=== PATIENT | female | born 1955 | race Caucasian/White ===

== ENCOUNTER 2016-10-19 10:42 | Emergency (ER) | payer OTHER ==
[~2016-10-19] VITALS: Ht 162.6 cm; Wt 82.0 kg
[~2016-10-19 10:42] MED LIST: COQ1150C2 PO; DIAZ5 PO; ESTR0.02 TD; FIORTAB4 PO; FOSI20 PO; PERC7.5T13 PO; ROSU5 PO; VALA500 PO
[2016-10-19 11:00] VITALS: BP 189/98; PULSE 96; RESP 16; TEMP 98.2; O2SAT 97
--- NOTE | 2016-10-19 11:09 | PD ---
HPI Chief Complaint: Allergic/Adverse Reaction Time Seen by Provider: 11:08 Travel History International Travel<30 days: No Contact w/Intl Traveler<30days: No Traveled to known affect area: No History of Present Illness HPI Patient 59-year-old female presents emergency department with swelling over her face and eyelids. Patient states she got out early to go work in her yard and a wasp stung her on the face as well as twice in the left upper extremity once on the right. She states this occurred approximately an hour prior to arrival and then she noticed some swelling and difficulty opening her eyes. She denies any shortness of breath, abdominal pain headache wheezing choking sensation or difficulty swallowing. States symptoms been gradually worsening. PFSH Past Medical History Anxiety: Yes Cardiovascular Problems: Yes (HTN) High Cholesterol: Yes Hypertension: Yes Migraines: Yes Thyroid Disease: Yes Tetanus Vaccination: > 5 Years Influenza Vaccination: No ?: Not Menopausal: Yes Tubal Ligation: Yes Past Surgical History Appendectomy: Yes Section: Yes Cholecystectomy: Yes Genitourinary Surgery: Yes (Bladder) Gynecologic Surgery: Yes (Adhesions removed) Hysterectomy: Yes Tonsillectomy: Yes Social History Alcohol Use: No Tobacco Use: No Substance Use: No Allergies-Medications (Allergen,Severity, Reaction): Uncoded Allergies: Thimerosal (Allergy, Severe, "Eyes blistered", 10/19/16) Reported Meds & Prescriptions Reported Meds & Active Scripts Active Epipen 2-Clark Inj (Epinephrine) 0.3 Mg/0.3 Ml Pfpen 0.3 Mg IM ONCE PRN Prednisone 20 Mg Tab 60 Mg PO DAILY 5 Days Reported Simvastatin 5 Mg Tab 5 Mg PO DAILY Hydrochlorothiazide 12.5 Mg Cap 12.5 Mg PO DAILY Valtrex (Valacyclovir HCl) 1 Gm Tab 1,000 Mg PO DAILY Estradiol 0.5 Mg Tab 0.5 Mg PO DAILY Valium (Diazepam) 5 Mg Tab 5 Mg PO BID Amlodipine (Amlodipine Besylate) 2.5 Mg Tab 2.5 Mg PO HS Levothyroxine (Levothyroxine Sodium) 50 Mcg Tab 50 Mcg PO DAILY Fosinopril (Fosinopril Sodium) 20 Mg Tab 20 Mg PO BID Review of Systems Except as stated in HPI: all other systems reviewed are Neg Physical Exam Narrative GENERAL: Well-developed well-nourished no apparent distress SKIN: Patient has some redness and a malar distribution, there is some soft tissue edema periorbital and over the bridge of her nose, no lip swelling HEAD: Atraumatic. Normocephalic. EYES: Pupils equal and round. No scleral icterus. No injection or drainage. ENT: No nasal bleeding or discharge. Mucous membranes pink and moist. Oropharynx is clear without any swelling. Airway is widely patent. NECK: Trachea midline. No JVD. CARDIOVASCULAR: Regular rate and rhythm. No murmur appreciated. RESPIRATORY: No accessory muscle use. Clear to auscultation. Breath sounds equal bilaterally. GASTROINTESTINAL: Abdomen soft, non-tender, nondistended. Hepatic and splenic margins not palpable. MUSCULOSKELETAL: No obvious deformities. No clubbing. No cyanosis. No edema. NEUROLOGICAL: Awake and alert. No obvious cranial nerve deficits. Motor grossly within normal limits. Normal speech. PSYCHIATRIC: Appropriate mood and affect; insight and judgment normal. Data Data Last Documented VS Vital Signs Date Time Temp Pulse Resp B/P Pulse Ox O2 Delivery O2 Flow Rate FiO2 10/19/16 14:25 83 97 10/19/16 12:20 14 153/89 Room Air 10/19/16 11:00 98.2 Orders Dexamethasone Inj (Decadron Inj) (10/19/16 11:15) Diphenhydramine Inj (Benadryl Inj) (10/19/16 11:15) MDM Medical Decision Making Medical Screen Exam Complete: Yes Emergency Medical Condition: Yes Differential Diagnosis Allergic reaction, urticaria, anaphylaxis is excluded clinically, angioedema. Narrative Course Patient was roomed in the emergency department, she did take 50 mg of Benadryl by mouth prior to arrival, she was given Decadron in the emergency department, she was given Benadryl IV. Over the next several hours she improved significantly. She continues to protect her airway. She is stable for discharge at this time. Discussed with her symptomatic management, the use of EpiPen and when it should be used and when to call 911. Discussed return to ED criteria. Diagnosis Primary Impression: Allergic reaction to bee sting Med/Other Pt SpecificInfo: Prescription(s) given Scripts Epinephrine Inj (Epipen 2-Clark Inj)0.3 Mg/0.3 Ml Pfpen0.3 Mg IM ONCE PRN ( ALLERGIC REACTION) #1 PACK Ref 0 Prov:Constantino Rincon MD 10/19/16 Prednisone 20 Mg Tab60 Mg PO DAILY 5 Days Ref 0 Prov:Constantino Rincon MD 10/19/16 Disposition: 01 DISCHARGE HOME Condition: Stable Constantino Rincon MD Oct 19, 2016 11:09
[2016-10-19] MEDS ORDERED: DIAZ5 PO (11:10)
[2016-10-19] MEDS ORDERED: LEVO50TA4 PO (11:10)
[2016-10-19] MEDS ORDERED: AMLO2.5T PO (11:10)
[2016-10-19] MEDS ORDERED: FOSI20TA PO (11:10)
[2016-10-19] MEDS ORDERED: HYDR12.57 PO (11:11)
[2016-10-19] MEDS ORDERED: ESTR0.5T PO (11:11)
[2016-10-19] MEDS ORDERED: VALT1TAB PO (11:11)
[2016-10-19] MEDS ORDERED: SIMV5TAB3 PO (11:11)
[2016-10-19] MEDS ORDERED: diphenhydrAMINE HCL 50 MG/ML VIAL IV PUSH ONE (11:15)
[2016-10-19] MEDS ORDERED: DEXAMETHASONE SOD PHOS 4 MG/ML VIAL IV PUSH ONE (11:15)
[2016-10-19 12:20] VITALS: BP 153/89; PULSE 87; RESP 14; O2SAT 98
[2016-10-19] MEDS ORDERED: EPIP0.3I IM (14:10)
[2016-10-19] MEDS ORDERED: PRED20 PO (14:10)
== END 2016-10-19 14:30 | disposition home or self-care (01) ==
LOC: PHED 10:42
DX: T63.441A Toxic effect of venom of bees, accidental (unintentional), initial encounter (principal); I10 Essential (primary) hypertension; E78.00 Pure hypercholesterolemia, unspecified; E07.9 Disorder of thyroid, unspecified
CPT/HCPCS: 96374; 96375; 99284; J1100; J1200

== ENCOUNTER 2016-12-18 16:20 | Emergency (ER) | payer OTHER ==
[~2016-12-18] VITALS: Ht 162.6 cm; Wt 79.2 kg
[~2016-12-18 16:20] MED LIST changes: +AMLO2.5T PO; -COQ1150C2 PO; +EPIP0.3I IM; -ESTR0.02 TD; +ESTR0.5T PO; -FIORTAB4 PO; -FOSI20 PO; +FOSI20TA PO; +HYDR12.57 PO; +LEVO50TA4 PO; -PERC7.5T13 PO; +PRED20 PO; -ROSU5 PO; +SIMV5TAB3 PO; -VALA500 PO; +VALT1TAB PO
[2016-12-18 16:29] VITALS: BP 152/83; PULSE 85; RESP 16; TEMP 98.1; O2SAT 99
[2016-12-18] MEDS ORDERED: ATOR40TA16 PO (17:22)
--- NOTE | 2016-12-18 17:31 | PD ---
HPI Chief Complaint: Edema Time Seen by Provider: 17:24 Travel History International Travel<30 days: No Contact w/Intl Traveler<30days: No Traveled to known affect area: No History of Present Illness HPI pcp is dr bergman. patient drove up to [place] ([address]) and developed large edema to ble, sent pictures to pcp who advised to be seen in hospital to ensure it was not a dvt, patient stated she would drive back home, her pcp did not recc this but she did anyway (except this time her son drove her down and she was passenger who kept her legs elevated)...this occurred on wednesday...today is wednesday and patient presents for dvt evaluation....presently patient has minimal swelling stating that keeping legs elev and using medical stockings helped reduce swelling greatly. PFSH Past Medical History Anxiety: Yes Cardiovascular Problems: Yes (HTN) High Cholesterol: Yes Diminished Hearing: No Hypertension: Yes Migraines: Yes Thyroid Disease: Yes Tetanus Vaccination: Unknown Influenza Vaccination: No ?: Not Menopausal: Yes Tubal Ligation: Yes Past Surgical History Appendectomy: Yes Section: Yes Cholecystectomy: Yes Genitourinary Surgery: Yes (Bladder) Gynecologic Surgery: Yes (Adhesions removed) Hysterectomy: Yes Tonsillectomy: Yes Social History Alcohol Use: No Tobacco Use: No Substance Use: No Allergies-Medications (Allergen,Severity, Reaction): Uncoded Allergies: Thimerosal (Allergy, Severe, "Eyes blistered", 10/19/16) Reported Meds & Prescriptions Reported Meds & Active Scripts Active Epipen 2-Clark Inj (Epinephrine) 0.3 Mg/0.3 Ml Pfpen 0.3 Mg IM ONCE PRN Reported Atorvastatin (Atorvastatin Calcium) 40 Mg Tab 40 Mg PO HS Hydrochlorothiazide 12.5 Mg Cap 12.5 Mg PO DAILY Valtrex (Valacyclovir HCl) 1 Gm Tab 1,000 Mg PO DAILY Estradiol 0.5 Mg Tab 0.5 Mg PO DAILY Valium (Diazepam) 5 Mg Tab 5 Mg PO BID Amlodipine (Amlodipine Besylate) 2.5 Mg Tab 2.5 Mg PO HS Levothyroxine (Levothyroxine Sodium) 50 Mcg Tab 50 Mcg PO DAILY Fosinopril (Fosinopril Sodium) 20 Mg Tab 20 Mg PO BID Review of Systems Except as stated in HPI: all other systems reviewed are Neg Cardiovascular: Positive: Edema (to BLE) Physical Exam Narrative GENERAL: SKIN: Warm and dry. no streaking or cellulitic changes HEAD: Atraumatic. Normocephalic. EYES: Pupils equal and round. No scleral icterus. No injection or drainage. ENT: No nasal bleeding or discharge. Mucous membranes pink and moist. NECK: Trachea midline. No JVD. CARDIOVASCULAR: Regular rate and rhythm. RESPIRATORY: No accessory muscle use. Clear to auscultation. Breath sounds equal bilaterally. GASTROINTESTINAL: Abdomen soft, non-tender, nondistended. MUSCULOSKELETAL: Extremities without clubbing, cyanosis, or 1+ ble edema. No obvious deformities. NEUROLOGICAL: Awake and alert. No obvious cranial nerve deficits. Motor grossly within normal limits. Five out of 5 muscle strength in the arms and legs. Normal speech. PSYCHIATRIC: Appropriate mood and affect; insight and judgment normal. Data Data Last Documented VS Vital Signs Date Time Temp Pulse Resp B/P (MAP) Pulse Ox O2 Delivery O2 Flow Rate FiO2 12/18/16 17:14 16 99 12/18/16 16:29 98.1 85 152/83 (106) Room Air Orders Orders Us Leg Venous Doppler Bilat (12/18/16 ) Basic Metabolic Panel (Bmp) (12/18/16 17:24) B-Type Natriuretic Peptide (12/18/16 17:24) Thyroid Stimulating Hormone (12/18/16 17:24) Potassium Chloride (Kcl) (12/18/16 19:15) Labs Laboratory Tests Test 12/18/16 18:00 Blood Urea Nitrogen 10 MG/DL Creatinine 0.91 MG/DL Random Glucose 108 MG/DL Calcium Level 8.5 MG/DL Sodium Level 138 MEQ/L Potassium Level 3.0 MEQ/L Chloride Level 102 MEQ/L Carbon Dioxide Level 26.4 MEQ/L Anion Gap 10 MEQ/L Estimat Glomerular Filtration Rate 63 ML/MIN Thyroid Stimulating Hormone 3rd Gen 2.240 uIU/ML [facility] Medical Decision Making Medical Screen Exam Complete: Yes Emergency Medical Condition: Yes Medical Record Reviewed: Yes Differential Diagnosis peripheral edema v dvt v chf v renal failure v liver failure Narrative Course creatinine and lft's wnl, ultrs neg for dvt on both legs, also bnp was not elevated to suggest chf. at this point patient appears to have peripheral edema for which pt can continue keeping legs elevated...potassium low will orally replace Diagnosis Primary Impression: Mild peripheral edema Additional Impression: mild hypokalemia Disposition: 01 DISCHARGE HOME Condition: Stable Flo Cervantes MD Dec 18, 2016 17:31
--- NOTE | 2016-12-18 18:01 | RADRPT ---
EXAM DATE/TIME: 12/18/2016 17:27 [facility] COMPARISON: No previous studies available for comparison. INDICATIONS : Bilateral leg swelling. MEDICAL HISTORY : Hypercholesterolemia. Hypertension. Thyroid disease. Glasses. SURGICAL HISTORY : Tonsillectomy.Appendectomy. Cholecystectomy.Tubal ligation. Hysterectomy. section. Bladder s urgery. ENCOUNTER: Initial ACUITY: 1 day PAIN SCORE: 1/10 LOCATION: Bilateral legs. TECHNIQUE: Venous ultrasound of the left and right leg was performed from the inguinal ligament to the proximal calf. Real-time, color Doppler and spectral tracing, compression and augmentation techniques were us ed. FINDINGS: RIGHT LEG: There is normal compressibility of the deep venous system from the inguinal region to the proximal ca lf. No echogenic clot is seen in the lumen of the common femoral, femoral, popliteal, and posterior tibial veins. There is a normal response of the venous system to proximal and distal augmentation an d respiration. LEFT LEG: There is normal compressibility of the deep venous system from the inguinal region to the proximal ca lf. No echogenic clot is seen in the lumen of the common femoral, femoral, popliteal, and posterior tibial veins. There is a normal response of the venous system to proximal and distal augmentation an d respiration. CONCLUSION: No DVT of either lower extremity. Corey Yeboah MD on December 18, 2016 at 18:00 Board Certified Radiologist. This report was verified electronically.
[2016-12-18 18:23] LABS: BICARBONATE 26.4 MEQ/L (21.0-32.0)
[2016-12-18] MEDS ORDERED: POTASSIUM CHLORIDE 10 MEQ CONTROLLED RELEASE TAB PO ONE (19:15)
[2016-12-18 19:43] VITALS: BP 137/75
== END 2016-12-18 19:53 | disposition home or self-care (01) ==
LOC: PHED 16:20
DX: R60.0 Localized edema (principal); E87.6 Hypokalemia; I10 Essential (primary) hypertension; E78.00 Pure hypercholesterolemia, unspecified; E07.9 Disorder of thyroid, unspecified
CPT/HCPCS: 80048; 83880; 84443; 93970; 99285

== ENCOUNTER 2017-05-21 00:56 | Emergency (ER) | payer OTHER ==
[~2017-05-21] VITALS: Ht 162.6 cm; Wt 78.3 kg
[~2017-05-21 00:56] MED LIST changes: +ATOR40TA16 PO; -PRED20 PO; -SIMV5TAB3 PO
[2017-05-21 00:57] VITALS: BP 163/79; PULSE 87; RESP 18; TEMP 97.8; O2SAT 96
--- NOTE | 2017-05-21 02:07 | PD ---
HPI Chief Complaint: OD/ Ingestion Time Seen by Provider: 01:34 Travel History International Travel<30 days: No Contact w/Intl Traveler<30days: No Traveled to known affect area: No History of Present Illness HPI 62-year-old female presents to the emergency department by private transportation for accidental overdose of Zyrtec. According the patient prior to going to bed at 11 PM she took off her evening medications including a one- time 10 mg dose of Zyrtec. Patient states she reportedly awakened around 12:30 with severe diarrhea and decided take an antidiarrheal pill and took 3 but identified after taking the medication that she had accidentally ingested 3 additional 0 tach and not the antidiarrheal medication. Patient became concerned because she has a history of high blood pressure and within approximately one hour to one and a half prior. She had taken 40 mg of Zyrtec. Patient states she tried to contact poison control but was directed to come to the emergency room by the auto response. Patient has no headache no visual disturbance no chest pain no shortness of breath no nausea no vomiting no ataxia no blurred vision double vision loss of vision palpitations balance disturbance of for lower extremity numbness tingling or weakness. Patient has not experienced any urinary retention. Patient states patient did not induce any vomiting. Patient states that she routinely takes medication for hypertension hypothyroidism pelvic spasm migraines and irritable/inflammatory bowel syndromes. [facility] Past Medical History Narrative Medical Anxiety dyslipidemia hypertension hypothyroidism migraines inflammatory bowel disease pelvic spasm syndrome appendectomy cholecystectomy hysterectomy tubal ligation; no tobacco use; nursing notes reviewed Anxiety: Yes Cardiovascular Problems: Yes (HTN) High Cholesterol: Yes Diminished Hearing: No Hypertension: Yes Migraines: Yes Thyroid Disease: Yes Tetanus Vaccination: > 5 Years Influenza Vaccination: No ?: Not Menopausal: Yes Tubal Ligation: Yes Past Surgical History Appendectomy: Yes Section: Yes Cholecystectomy: Yes Genitourinary Surgery: Yes (Bladder) Gynecologic Surgery: Yes (Adhesions removed) Hysterectomy: Yes Tonsillectomy: Yes Social History Alcohol Use: No Tobacco Use: No Substance Use: No Allergies-Medications (Allergen,Severity, Reaction): Uncoded Allergies: Thimerosal (Allergy, Severe, "Eyes blistered", 10/19/16) Reported Meds & Prescriptions Reported Meds & Active Scripts Active Epipen 2-Clark Inj (Epinephrine) 0.3 Mg/0.3 Ml Pfpen 0.3 Mg IM ONCE PRN Reported Atorvastatin (Atorvastatin Calcium) 40 Mg Tab 40 Mg PO HS Hydrochlorothiazide 12.5 Mg Cap 12.5 Mg PO DAILY Valtrex (Valacyclovir HCl) 1 Gm Tab 1,000 Mg PO DAILY Estradiol 0.5 Mg Tab 0.5 Mg PO DAILY Valium (Diazepam) 5 Mg Tab 5 Mg PO BID Amlodipine (Amlodipine Besylate) 2.5 Mg Tab 2.5 Mg PO HS Levothyroxine (Levothyroxine Sodium) 50 Mcg Tab 50 Mcg PO DAILY Fosinopril (Fosinopril Sodium) 20 Mg Tab 20 Mg PO BID Review of Systems Except as stated in HPI: all other systems reviewed are Neg General / Constitutional: No: Fever, Chills HENT: No: Congestion Cardiovascular: No: Chest Pain or Discomfort, Palpitations, Diaphoresis, Syncope Respiratory: No: Cough, Shortness of Breath, Wheezing Gastrointestinal: No: Nausea, Vomiting, Abdominal Pain Genitourinary: No: Hesitancy, Dribbling, Flank Pain Musculoskeletal: No: Myalgias, Arthralgias Skin: No Rash Neurologic: No: Weakness, Dizziness, Syncope, Focal Abnormalities, Coordination Problem Psychiatric: No: Anxiety Endocrine: No: Heat Intolerance Hematologic/Lymphatic: No: Easy Bruising Physical Exam Narrative GENERAL: Well-developed well-nourished female in no acute distress no respiratory distress; GCS 15. SKIN: Warm and dry. HEAD: Normocephalic. EYES: No scleral icterus. No injection or drainage. NECK: Supple, trachea midline. No JVD or lymphadenopathy. CARDIOVASCULAR: Regular rate and rhythm without murmurs, gallops, or rubs. RESPIRATORY: Breath sounds equal bilaterally. No accessory muscle use. GASTROINTESTINAL: Abdomen soft, non-tender, nondistended. MUSCULOSKELETAL: No cyanosis, or edema. BACK: Nontender without obvious deformity. No CVA tenderness. Data Data Last Documented VS Vital Signs Date Time Temp Pulse Resp B/P (MAP) Pulse Ox O2 Delivery O2 Flow Rate FiO2 05/21/17 02:08 85 18 138/85 (102) 97 05/21/17 01:25 Room Air 05/21/17 00:57 97.8 Orders Orders Electrocardiogram (05/21/17 ) MDM Medical Decision Making Medical Screen Exam Complete: Yes Emergency Medical Condition: Yes Medical Record Reviewed: Yes Interpretation(s) EKG: Normal sinus rhythm rate [address] elevation injury pattern or ectopy noted Differential Diagnosis Accidental antihistamine overdose, uncontrolled hypertension, diarrheal illness Narrative Course Patient with accidental ingestion of a total of 40 mg of Zyrtec over a one-hour period: Patient has history of hypertension; patient is asymptomatic: Patient took Valium at bedtime which is routine for her; blood pressure in triage 163/ 79. Patient has taken her antihypertensive medications. Poison control notified. EKG ordered and repeat blood pressures performed. Patient is otherwise asymptomatic and stable for outpatient management. EKG sinus rhythm no acute injury pattern or ectopy noted; repeat blood pressure 134/73 Patient tolerating oral hydration well. EKG shows no acute abnormality patient to monitor for 2 hours without ectopy and blood pressure has remained normal range except for initial triage blood pressure was mildly elevated. It is now 3 AM patient is comfortable no increased drowsiness no agitation no nervousness no restlessness no chest pain no shortness of breath no sweats tolerating oral hydration well no altered mentation no pain no urinary retention no upper or lower extremity numbness tingling or weakness or ataxia of gait. Patient is been up out of bed to bathroom. Patient is taking oral hydration well. Patient is stable for outpatient management and follow-up with her primary care provider and encouraged to not use Zyrtec or any additional antihistamines for the next 24-48 hours. Diagnosis Primary Impression: Accidental overdose Qualified Codes: T50.901A - Poisoning by unspecified drugs, medicaments and biological substances, accidental (unintentional), initial encounter Referrals: Primary Care Physician call for appointment Patient Instructions: General Instructions Additional Instructions: Do not take any Zyrtec/antihistamine 24-48 hours Follow-up with your primary care provider Continue chronic medications as otherwise chronically prescribed Increase fluid hydration Return to the emergency department for a concerns or change in condition Disposition: 01 DISCHARGE HOME Condition: Stable Alpa Selby MD May 21, 2017 02:07
[2017-05-21 02:08] VITALS: BP 138/85; PULSE 85; RESP 18; O2SAT 97
[2017-05-21 03:08] VITALS: BP 135/74; TEMP 98.2
--- NOTE | 2017-05-21 08:33 | EKG ---
Date Performed: 05/21/2017 Time Performed: 01:42:15 PTAGE: 62 years EKG: Sinus rhythm LOW QRS VOLTAGE IN PRECORDIAL LEADS BORDERLINE ECG PREVIOUS TRACING : 10/20/2010 07.48 No change from previous tracing noted. DOCTOR: Arnulfo Thomas Interpretating Date/Time 05/21/2017 08:33:37
== END 2017-05-21 03:11 | disposition home or self-care (01) ==
LOC: PHED 00:56
DX: T45.0X1A Poisoning by antiallergic and antiemetic drugs, accidental (unintentional), initial encounter (principal); R94.31 Abnormal electrocardiogram [ECG] [EKG]; I10 Essential (primary) hypertension; E78.00 Pure hypercholesterolemia, unspecified; E03.9 Hypothyroidism, unspecified; F41.9 Anxiety disorder, unspecified; Y92.009 Unspecified place in unspecified non-institutional (private) residence as the place of occurrence of the external cause; Z90.49 Acquired absence of other specified parts of digestive tract; Z90.710 Acquired absence of both cervix and uterus; Z88.8 Allergy status to other drugs, medicaments and biological substances; Z79.899 Other long term (current) drug therapy
CPT/HCPCS: 93005; 99283

== ENCOUNTER 2018-06-11 04:02 | Inpatient (IN) ==
[2018-06-11] MEDS ORDERED: Pantoprazole Inj 40 MG Vial IV.PUSH ONE (04:14)
[2018-06-11] MEDS ORDERED: Sod Chloride 0.9% Inj 1,000 ML IV.SIG ONE (04:14)
[2018-06-11] MEDS ORDERED: Azithromycin Inj 500 MG in Sodium Chlor 0.9% Inj 250 ML IV.SIG ONE (04:23)
--- NOTE | 2018-06-11 04:23 | ED ---
HPI General Chief Complaint: Nausea/Vomiting/Diarrhea Stated Complaint: Vomiting Blood Time Seen by Provider: 06/11/18 04:14 Source: patient Mode of arrival: ambulatory Limitations: no limitations History of Present Illness HPI Narrative: 63-year-old female presents to the emergency department by private transportation for complaint of fever cough congestion vomiting and then episode of hematemesis. Patient states that she has recently been exposed to respiratory illness for multiple family members while attending a in [place]. Patient just returned home yesterday. Patient states family members have also had nausea patient states she did not have the flu vaccine. Patient reports that at home her temperature was 102.7 F. Patient's had cough congestion chest pain with deep respiratory effort and coughing. Patient is not reporting abdominal pain or rectal pain or hematochezia or melena or urinary symptoms such as dysuria frequency urgency dysuria or hematuria or flank pain. Patient has history of hypertension dyslipidemia and diabetes also was treated for migraines as needed has had previous shingles. Patient did not have the flu vaccine as she is reportedly allergic to the preservative. MD complaint: Reports fever, malaise and weakness Onset (ago): day(s) Maximum Temperature: 102.7 F Temperature Source: oral Context: Reports sick contacts, other(s) with similar symptoms and recent travel ; Denies recent procedure, recent antibiotic use, on chemotherapy and on immunosuppressant(s) Associated symptoms: Reports chills, myalgias, nasal congestion, sore throat, cough, chest pain, shortness of breath, nausea and vomiting; Denies rigors, headache, rhinorrhea, stiff neck, abdominal pain, diarrhea, dysuria, rash, confusion, night sweats and weight loss Relieving factors: nothing and other (aleve) Exacerbating factors: nothing Treatments prior to arrival fever: Reports other (aleve) Related Data Home Medications Medication Instructions Recorded Confirmed [id number]-[id number]-doknlxrk 1 cap PO Q6H 12/09/17 06/11/18 diazepam 5 mg PO DAILY 12/09/17 06/11/18 esomeprazole magnesium 40 mg PO DAILY 12/09/17 06/11/18 estradiol 2 mg PO EVERY OTHER DAY 12/09/17 06/11/18 fosinopril 20 mg PO BID 12/09/17 06/11/18 hydrochlorothiazide 25 mg PO DAILY 12/09/17 06/11/18 levothyroxine 50 mcg PO DAILY 12/09/17 06/11/18 nebivolol [Bystolic] 10 mg PO DAILY 12/09/17 06/11/18 promethazine 25 mg PO Q6H PRN 12/09/17 06/11/18 magnesium oxide [MagOx] 400 mg PO DAILY 06/11/18 06/11/18 potassium chloride 10 meq PO BID 06/11/18 06/11/18 rosuvastatin 40 mg PO DAILY 06/11/18 06/11/18 valacyclovir 1,000 mg PO TID 06/11/18 06/11/18 Allergies Allergy/AdvReac Type Severity Reaction Status Date / Time Thimerosal Allergy Severe "Eyes Uncoded 06/11/18 04:19 blistered" Review of Systems ROS: all other systems reviewed are negative PMFSH History History Provided By: Patient Medical History Medical History Diabetes (Acute) Hyperlipidemia (Acute) Hypertension (Acute) Hypothyroid (Acute) Migraine (Acute) Shingles (Acute) Surgical History Surgical History H/O total hysterectomy (Acute) Social History Social History Substance History: No History of Abuse Second Hand Smoke Exposure: No Smoking Status: Never smoker How Often Do You Have a Drink Containing Alcohol: Never Recent Travel in [facility] within the Last 8 Weeks: No Recent Out of Country Travel within the Last 8 Weeks: No Exam Narrative Exam Narrative: GENERAL: Well-nourished, well-developed patient. No acute distress no respiratory distress GCS 15 SKIN: Focused skin assessment warm/dry. HEAD: Normocephalic. EYES: No scleral icterus. No injection or drainage. ENT: Mucous membranes moist airway is patent no edema erythema or exudative change and scant blood down the posterior pharynx. NECK: Supple, trachea midline. No JVD or lymphadenopathy. No meningismus no nuchal rigidity. CARDIOVASCULAR: Regular rate and rhythm without murmurs, gallops, or rubs. RESPIRATORY: Breath sounds equal bilaterally few right base crackles. No accessory muscle use. GASTROINTESTINAL: Abdomen soft, non-tender, nondistended. No guarding no rebound. MUSCULOSKELETAL: No cyanosis, or edema. BACK: Nontender without obvious deformity. No CVA tenderness. Course Initial Documented Vital Signs Temperature 100.0 F H 06/11/18 04:14 Pulse Rate 84 06/11/18 04:14 Respiratory Rate 18 06/11/18 04:14 Blood Pressure 126/72 06/11/18 04:14 Pulse Oximetry 93 L 06/11/18 04:14 Last Documented Vital Signs Temperature 102.2 F H 06/11/18 06:03 Pulse Rate 83 06/11/18 06:03 Respiratory Rate 18 06/11/18 06:03 Blood Pressure 123/68 06/11/18 06:03 Pulse Oximetry 95 06/11/18 06:03 Medical Decision Making MDM Narrative Medical decision making narrative: Patient has received presumptive IV antibiotic for community-acquired pneumonia with Rocephin and [age]cegav[age]zkc82- year-old female with upper respiratory and infection possible influenza and concern for pneumonia presents with reported episode of vomiting and then hematemesis. IV access obtained specimens collected and sent for resulting patient did take an Aleve prior to arrival to the emergency department and report of fever of 102.7 F from home has defervesced to 100 F. Specimens collected and sent for resulting patient given bolus of normal and presumptive IV antibiotic for community-acquired pneumonia Rectal exam is Hemoccult negative; Gastroccult is positive Chest x-ray shows no lobar infiltrate Influenza A/B antigen is negative CBC with automated differential total white cell count is 8700 with left shift 87% neutrophils mild thrombocytopenia platelet count 122,000 Coagulation studies are normal range CBC is automated differential serum sodium potassium are in normal range bicarb is normal at 28 with an anion gap of 6 normal renal function with a BUN and creatinine of 11/0.99 respectively mild hyperglycemia 136 nonspecific as nonspecific postprandial lactic acid is borderline at 2.0 LFTs are remarkable for mild elevation of AST of 106 and ALT of 65 EKG shows no acute injury pattern change and troponin I is less than 0.02 Patient's case discussed with [facility] service will admit as obscure Sirs, influenza -like illness bronchitis possible early pneumonia not identified yet on CHEST X- RAY acute gastritis with report of hematemesis not identified in the emergency department however emesis is Gastroccult positive. Patient has received presumptive IV antibiotic for community-acquired pneumonia with Rocephin and azithromycin. Medical Screen Exam Complete: Yes Emergency Medical Condition: Yes Lab Data Result diagrams: 06/11/18 04:13 06/11/18 04:13 Lab Results 06/11/18 06/11/18 06/11/18 Range/Units 04:13 04:13 04:13 CBC w Diff Auto diff final WBC 8.7 (4.0-11.0) th/mm3 RBC 3.97 L (4.00-5.30) mil/mm3 Hgb 13.0 (11.6-15.3) gm/dL Hct 37.3 (35.0-46.0) % MCV 93.9 (80.0-100.0) fL MCH 32.6 (27.0-34.0) pg MCHC 34.8 (32.0-36.0) % RDW 12.4 (11.6-17.2) % Plt Count 122 L (150-450) th/mm3 MPV 9.8 (7.0-11.0) fL Neut % (Auto) 84.9 H (16.0-70.0) % Lymph % (Auto) 10.5 (9.0-44.0) % [place] % (Auto) 3.3 (0.0-8.0) % Eos % (Auto) 0.9 (0.0-4.0) % Baso % (Auto) 0.4 (0.0-2.0) % Neut # (Auto) 7.4 (1.8-7.7) th/mm3 Lymph # (Auto) 0.9 L (1.0-4.8) th/mm3 [place] # (Auto) 0.3 (0.0-0.9) th/mm3 Eos # (Auto) 0.1 (0.0-0.4) th/mm3 Baso # (Auto) 0.0 (0.0-0.2) th/mm3 WBC Differential . Differential Comment . PT 10.0 (9.8-11.6) sec INR 1.0 Ratio Sodium (136-145) meq/L Potassium (3.5-5.1) meq/L Chloride (98-107) meq/L Carbon Dioxide (21.0-32.0) meq/L Anion Gap (5-15) meq/L BUN (7-18) mg/dL Creatinine (0.50-1.00) mg/dL Estimated GFR (>89) mL/min Random Glucose (74-106) mg/dL Lactic Acid (0.4-2.0) mmol/L Calcium (8.5-10.1) mg/dL Total Bilirubin (0.2-1.0) mg/dL AST (15-37) U/L ALT (10-53) U/L Alkaline Phosphatase (45-117) U/L Troponin I Less than 0.02 L (0.02-0.05) ng/mL Total Protein (6.4-8.2) g/dL Albumin (3.4-5.0) g/dL Lipase 101 (73-393) U/L 06/11/18 06/11/18 Range/Units 04:13 04:13 CBC w Diff WBC (4.0-11.0) th/mm3 RBC (4.00-5.30) mil/mm3 Hgb (11.6-15.3) gm/dL Hct (35.0-46.0) % MCV (80.0-100.0) fL MCH (27.0-34.0) pg MCHC (32.0-36.0) % RDW (11.6-17.2) % Plt Count (150-450) th/mm3 MPV (7.0-11.0) fL Neut % (Auto) (16.0-70.0) % Lymph % (Auto) (9.0-44.0) % [place] % (Auto) (0.0-8.0) % Eos % (Auto) (0.0-4.0) % Baso % (Auto) (0.0-2.0) % Neut # (Auto) (1.8-7.7) th/mm3 Lymph # (Auto) (1.0-4.8) th/mm3 [place] # (Auto) (0.0-0.9) th/mm3 Eos # (Auto) (0.0-0.4) th/mm3 Baso # (Auto) (0.0-0.2) th/mm3 WBC Differential Differential Comment PT (9.8-11.6) sec INR Ratio Sodium 136 (136-145) meq/L Potassium 3.6 (3.5-5.1) meq/L Chloride 102 (98-107) meq/L Carbon Dioxide 28.1 (21.0-32.0) meq/L Anion Gap 6 (5-15) meq/L BUN 11 (7-18) mg/dL Creatinine 0.99 (0.50-1.00) mg/dL Estimated GFR 56 L (>89) mL/min Random Glucose 136 H (74-106) mg/dL Lactic Acid 2.0 (0.4-2.0) mmol/L Calcium 8.5 (8.5-10.1) mg/dL Total Bilirubin 0.5 (0.2-1.0) mg/dL AST 106 H (15-37) U/L ALT 65 H (10-53) U/L Alkaline Phosphatase 91 (45-117) U/L Troponin I (0.02-0.05) ng/mL Total Protein 7.7 (6.4-8.2) g/dL Albumin 4.2 (3.4-5.0) g/dL Lipase (73-393) U/L Imaging Data Radiologist's impression: Chest X-Ray 06/11/18 04:15 CONCLUSION: No acute disease ECG Data EKG Prior to Arrival: No Attestation: I personally reviewed and interpreted this ECG as follows: (EKG: Normal sinus rhythm rate [address] elevation injury pattern or ectopy noted ) Discharge Plan Discharge Disposition Patient Disposition: ED Admit(ED Internal Use Only) Discharge Condition Condition: Stable Discharge Order Discharge Orders: ED Use Only Admit Order (Routine); Ordered 06/11/18 Ordered By: Alpa Selby Discharge Details Diagnosis: SIRS (systemic inflammatory response syndrome), Influenza-like illness, Bronchitis, Acute gastritis Physicians Team ED Provider: Alpa Selby Primary Care Provider: Bc Johnston Rxs /Orders / Referrals /Forms Prescriptions: No Action valacyclovir 1 gram Tablet 1,000 mg PO TID RF: 0 potassium chloride 10 mEq Tablet Extended Release 10 meq PO BID RF: 0 magnesium oxide [MagOx] 400 mg (241.3 mg magnesium) Tablet 400 mg PO DAILY RF: 0 rosuvastatin 40 mg Tablet 40 mg PO DAILY RF: 0 fosinopril 20 mg Tablet 20 mg PO BID RF: 0 esomeprazole magnesium 40 mg Capsule,Delayed Release(Dr/Ec) 40 mg PO DAILY RF: 0 promethazine 25 mg Tablet 25 mg PO Q6H PRN (Reason: Acne) RF: 0 lulabjhyks-nkdhawu-bvedimbh 50-325-40 mg Capsule 1 cap PO Q6H RF: 0 estradiol 2 mg Tablet 2 mg PO EVERY OTHER DAY RF: 0 hydrochlorothiazide 25 mg Tablet 25 mg PO DAILY RF: 0 diazepam 5 mg Tablet 5 mg PO DAILY RF: 0 nebivolol [Bystolic] 10 mg Tablet 10 mg PO DAILY RF: 0 levothyroxine 50 mcg Capsule 50 mcg PO DAILY RF: 0 Status ED Status: With Doctor
[2018-06-11 04:46] LABS: Baso % (Auto) 0.4 % (0.0-2.0); Eos # (Auto) 0.1 th/mm3 (0.0-0.4); Eos % (Auto) 0.9 % (0.0-4.0); Hematocrit 37.3 % (35.0-46.0); Lymph # (Auto) 0.9 th/mm3 (1.0-4.8); Lymph % (Auto) 10.5 % (9.0-44.0); Mean Corpuscular HGB Conc 34.8 % (32.0-36.0); Mean Corpuscular Hemoglobin 32.6 pg (27.0-34.0); Mean Corpuscular Volume 93.9 fL (80.0-100.0); Mean Platelet Volume 9.8 fL (7.0-11.0); Mono # (Auto) 0.3 th/mm3 (0.0-0.9); Mono % (Auto) 3.3 % (0.0-8.0); Neut # (Auto) 7.4 th/mm3 (1.8-7.7); Neut % (Auto) 84.9 % (16.0-70.0); Platelet Count 122 th/mm3 (150-450); Red Blood Count 3.97 mil/mm3 (4.00-5.30); Red Cell Distribution Width 12.4 % (11.6-17.2); White Blood Count 8.7 th/mm3 (4.0-11.0)
[2018-06-11 04:58] LABS: Chloride 102 meq/L (98-107); Potassium 3.6 meq/L (3.5-5.1); Sodium 136 meq/L (136-145)
[2018-06-11 05:01] LABS: Calcium 8.5 mg/dL (8.5-10.1)
[2018-06-11 05:02] LABS: Albumin 4.2 g/dL (3.4-5.0); Anion Gap 6 meq/L (5-15); Blood Urea Nitrogen 11 mg/dL (7-18); Carbon Dioxide 28.1 meq/L (21.0-32.0); Glucose,Random 136 mg/dL (74-106); Lipase 101 U/L (73-393)
[2018-06-11 05:05] LABS: Alanine Aminotransferase 65 U/L (10-53); Aspartate Aminotransferase 106 U/L (15-37); Glomerular Filtration Rate 56 mL/min (>89)
--- NOTE | 2018-06-11 05:05 | XR ---
EXAM DATE: 06/11/2018 4:36 AM EST AGE/SEX: 63 years / Female INDICATIONS: Fever. CLINICAL DATA: This is the patient's initial encounter. Patient reports that signs and symptoms have been present for 1 day and indicates a pain score of 9/10. MEDICAL/SURGICAL HISTORY: Hypertension. Cholecystectomy. COMPARISON: [facility], CHEST 1V SINGLE AP, 12/09/2017. . FINDINGS: A single AP view of the chest demonstrates the lungs to be symmetrically aerated without evidence of mass, infiltrate or effusion. The cardiomediastinal contours are unremarkable. Osseous structures a re intact. CONCLUSION: No acute disease Electronically signed by: Corey Rodgers MD Board Certified Radiologist 06/11/2018 5:03 AM EST
[2018-06-11 05:06] LABS: Total Protein 7.7 g/dL (6.4-8.2)
[2018-06-11 05:08] LABS: Alkaline Phosphatase 91 U/L (45-117)
[2018-06-11] MEDS ORDERED: Acetaminophen 500 MG Tablet PO ONE (06:06)
[2018-06-11] MEDS ORDERED: Acetaminophen 325 MG Tablet PO PRN (06:16)
[2018-06-11 06:45] LABS: Bilirubin,Urine Negative (Negative); Clarity,Urine Clear (Clear); Color,Urine Yellow (Yellw/Straw); Glucose,Urine (UA) Negative (Negative); Leukocyte Esterase,Urine Negative (Negative); Nitrite,Urine Negative (Negative); Specific Gravity,Urine 1.025 (1.002-1.035)
[2018-06-11 06:53] LABS: Bacteria,Urine Moderate /hpf; RBC,Urine 0-3 /hpf (0-3); WBC,Urine 0-5 /hpf (0-5)
--- NOTE | 2018-06-11 06:57 | ECG ---
Date Performed: 06/11/2018 Time Performed: 04:27:15 PTAGE: 63 years EKG: Sinus rhythm NORMAL ECG compared to prior electrocardiogram, mild nonspecific T wave changes have improved. PREVIOUS TRACING : 12/09/2017 15.53 DOCTOR: Jarvis Rainey Interpretating Date/Time 06/11/2018 06:56:20
[2018-06-11] MEDS: guaiFENesin 600 MG ER Tablet PO SCH ×2 (08:37→20:02)
[2018-06-11] MEDS ORDERED: Dextrose 50% in Water 50 ML Vial IV.PUSH PRN (11:25)
--- NOTE | 2018-06-11 11:26 | P.HPIM ---
History of Present Illness Primary Care Physician: Bc Johnston Chief Complaint: Vomiting of blood History of Present Illness: 63-year-old female with known history of hypertension, hyperlipidemia, diabetes, hypothyroidism who presented to hospital for evaluation of vomiting of blood. Patient states that she has been undergoing a lot of stress recently and just went to her sister's . Her and her daughter were driving back from [place] where the the was yesterday and her daughter developed sudden onset of nausea and vomiting. She persisted to have that during the whole drive down. The patient herself woke up yesterday morning not feeling 100%. She started developing body aches, sore throat, congestion the patient did take an Mucinex with minimal relief. Last evening the patient started developing fever which he states was 103. She got out of bed in order to take an Aleve. Then shortly after that she started having nausea and vomiting where she described as her stomach flipped and she just started vomiting. She noticed that there is copious amounts of blood in her vomit that she vomited in the bed as well as the napkins were full of blood. Because of that she came to the emergency department for evaluation. Patient did have workup performed in emergency department and found to have hemoglobin of 14.8. Gastric occult was positive. Normal renal functions. Mildly elevated liver enzymes. Bilirubin was normal. Due to the patient's continued fever, hematemesis it was recommended that patient be admitted to hospital for further evaluation and management. Patient indicates that she has been seen by Dr. Whitehead and has had upper and lower endoscopy. Review of Systems Review of Systems: all other systems reviewed are negative Constitutional: Reports chills and Reports fever(s) Gastrointestinal: Reports nausea, Reports vomiting and Reports hematemesis [facility] Medical History Medical History Diabetes (Acute) Hiatal hernia (Acute) Hyperlipidemia (Acute) Hypertension (Acute) Hypothyroid (Acute) Migraine (Acute) Shingles (Acute) Surgical History Surgical History H/O total hysterectomy (Acute) History of appendectomy (Acute) History of cholecystectomy (Acute) History of oophorectomy (Acute) Social History Social History Substance History: No History of Abuse Second Hand Smoke Exposure: No Smoking Status: Never smoker How Often Do You Have a Drink Containing Alcohol: Never Recent Travel in [facility] within the Last 8 Weeks: No Recent Out of Country Travel within the Last 8 Weeks: No Immunization History Tetanus Immunization: >5 Years Medications and Allergies Allergies Allergy/AdvReac Type Severity Reaction Status Date / Time Thimerosal Allergy Severe "Eyes Uncoded 06/11/18 04:19 blistered" Home Medications Medication Instructions Recorded Confirmed Type yjxaethaki-xrytuci-bheoills 1 cap PO Q6H 12/09/17 06/11/18 History diazepam 5 mg PO BID 12/09/17 06/11/18 History esomeprazole magnesium 40 mg PO DAILY 12/09/17 06/11/18 History estradiol 2 mg PO EVERY OTHER DAY 12/09/17 06/11/18 History fosinopril 20 mg PO BID 12/09/17 06/11/18 History hydrochlorothiazide 25 mg PO DAILY 12/09/17 06/11/18 History levothyroxine 50 mcg PO DAILY 12/09/17 06/11/18 History nebivolol [Bystolic] 10 mg PO DAILY 12/09/17 06/11/18 History promethazine 25 mg PO Q6H PRN 12/09/17 06/11/18 History guaifenesin [Mucinex] 1,200 mg PO Q12H 06/11/18 06/11/18 History magnesium oxide [MagOx] 400 mg PO DAILY 06/11/18 06/11/18 History naproxen sodium 220 mg PO BID PRN 06/11/18 06/11/18 History potassium chloride 10 meq PO BID 06/11/18 06/11/18 History rosuvastatin 40 mg PO DAILY 06/11/18 06/11/18 History valacyclovir 1,000 mg PO TID 06/11/18 06/11/18 History Active Medications: Active Medications Acetaminophen (Tylenol) 650 mg PO Q4H PRN PRN Reason: Temp > 100.4 Last Admin: 06/11/18 10:20 Dose: 650 mg Guaifenesin (Mucinex Er) 600 mg PO BID WENDY Last Admin: 06/11/18 08:37 Dose: Not Given Ondansetron HCl (Zofran Inj) 4 mg IV.PUSH Q6H PRN PRN Reason: NAUSEA OR VOMITING Sodium Chloride (Ns Flush) 2 ml IV.FLUSH PRN PRN PRN Reason: FLUSH AFTER USING IV ACCESS Sodium Chloride (Ns Flush) 2 ml IV.FLUSH BID WENDY Last Admin: 06/11/18 08:37 Dose: Not Given Sodium Chloride (Ns Flush) 2 ml IV.FLUSH PRN PRN PRN Reason: FLUSH AFTER USING IV ACCESS Physical Exam Vital signs: Vital Signs 06/11/18 04:14 06/11/18 04:38 06/11/18 06:03 Temperature 100.0 F H 102.2 F H Pulse Rate 84 98 H 83 Respiratory Rate 18 18 18 Blood Pressure 126/72 145/74 H 123/68 Pulse Oximetry 93 L 94 L 95 06/11/18 06:15 06/11/18 07:40 Temperature 102.2 F H Pulse Rate 89 68 Respiratory Rate 18 18 Blood Pressure 133/63 111/54 L Pulse Oximetry 96 94 L Intake & Output 06/10/18 06/11/18 06/11/18 18:59 06:59 18:59 Intake Total 350 / 350 1000 / 1000 Output Total 300 / 300 Balance 50 / 50 1000 / 1000 Weight 86.8 kg Intake: IV 350 / 350 1000 / 1000 Azithromycin Inj 500 MG In NS 250 / 250 Inj 250 ML @ 250 mls/hr IV.SIG ONCE ONE Rx#:[id number] NS Inj 1,000 ML @ Wide Open IV. 1000 / 1000 SIG BOLUS ONE Rx#:[id number] Rocephin Inj 1,000 MG In NS Inj 100 / 100 100 ML @ 200 mls/hr IV.SIG ONCE ONE Rx#:[id number] Output: Urine 300 / 300 Other: # Voids 1 Narrative: GENERAL: Well-developed, well-nourished, in no acute distress. Patient appears to be ill-appearing. Voice is raspy. Alert and orientated HEENT: Head is normocephalic without any lesions or masses noted. Facial features are symmetric. Eyes: Pupils equal round reactive to light. Extraocular muscles are intact. Conjunctivae were clear. Oropharyngeal: Pharynx without any erythema edema. Tongue is midline without deviation. Buccal mucosa is moist without any masses or lesions NECK: Supple without any masses. Trachea midline no deviation. No JVD, no bruits are appreciated CARDIAC: Regular rhythm, regular rate. S1/S2 are heard. No murmurs gallops or rubs. LUNGS: Clear to auscultation bilaterally. No wheeze, rhonchi or rales. No use of accessory muscles on inspiration or expiration. ABDOMEN: Soft, nontender. Nondistended. Bowel sounds heard in all 4 quadrants. No organomegaly or masses. Negative rebound, negative guarding EXTREMITIES: No edema, pulses are equal bilaterally. No cyanosis or clubbing NEUROLOGY: Mood and affect appear appropriate. Cranial nerves II through XII grossly intact. Muscle strength 5/5 in upper and lower extremities bilaterally. Deep tendon reflexes are 2+ in upper and lower extremities bilaterally. Results Labs CBC & Chem 7: 06/11/18 04:13 06/11/18 04:13 Imaging Impressions Chest X-Ray 06/11/18 04:15 CONCLUSION: No acute disease Caprini VTE Risk Assessment Caprini VTE Risk Assessment: Moderate/High Risk (score >= 2) Caprini Risk Assessment Model: Point Value = 1 Point Value = 2 Point Value = 3 Point Value = 5 Age 41-60 Minor surgery BMI > 25 kg/m2 Swollen legs Varicose veins or History of unexplained or recurrent spontaneous Oral contraceptives or hormone replacement Sepsis (< 1 month) Serious lung disease, including pneumonia (< 1 month) Abnormal pulmonary function Acute myocardial infarction Congestive heart failure (< 1 month) History of inflammatory bowel disease Medical patient at bed rest Age 61-74 Arthroscopic surgery Major open surgery (> 45 min) Laparoscopic surgery (> 45 min) Malignancy Confined to bed (> 72 hours) Immobilizing plaster cast Central venous access Age >= 75 History of VTE Family history of VTE Factor V Leiden Prothrombin [id number] Lupus anticoagulant Anticardiolipin antibodies Elevated serum homocysteine Heparin-induced thrombocytopenia Other congenital or acquired thrombophilia Stroke (< 1 month) Elective arthroplasty Hip, pelvis, or leg fracture Acute spinal cord injury (< 1 month) Prophylaxis Regimen: Total Risk Factor Score Risk Level Prophylaxis Regimen 0-1 Low Early ambulation 2 Moderate Order ONE of the following: *Sequential Compression Device (SCD) *Heparin 5000 units SQ BID 3-4 Higher Order ONE of the following medications: *Heparin 5000 units SQ TID *Enoxaparin/Lovenox 40 mg SQ daily (WT < 150 kg, CrCl > 30 mL/min) *Enoxaparin/Lovenox 30 mg SQ daily (WT < 150 kg, CrCl > 10-29 mL/min) *Enoxaparin/Lovenox 30 mg SQ BID (WT < 150 kg, CrCl > 30 mL/min) AND/OR *Sequential Compression Device (SCD) 5 or more Highest Order ONE of the following medications: *Heparin 5000 units SQ TID (Preferred with Epidurals) *Enoxaparin/Lovenox 40 mg SQ daily (WT < 150 kg, CrCl > 30 mL/min) *Enoxaparin/Lovenox 30 mg SQ daily (WT < 150 kg, CrCl > 10-29 mL/min) *Enoxaparin/Lovenox 30 mg SQ BID (WT < 150 kg, CrCl > 30 mL/min) AND *Sequential Compression Device (SCD) Assessment and Plan Plan Hematemesis Patient will be started on Protonix IV Dr. Whitehead will be consulted for further recommendations, patient known to him Continue monitor hemoglobin hematocrit, transfuse a hemoglobin below 8.0 Zofran as needed for nausea or vomiting Continue IV fluids Viremia No leukocytosis was appreciated, chest x-ray was clear, influenza testing was negative Supportive care Tylenol as needed for fever, pain Empiric Rocephin and Zithromax started for possible early pneumonia Mucinex twice daily Continue monitor blood cultures Elevated liver enzymes Could be secondary to nausea, vomiting, viremia Check hepatitis panel Hypertension, hypothyroidism Resume thyroid replacement Resume home medication when blood pressure can support it Diabetes Accu-Cheks with sliding scale insulin DVT prevention Sequential compression devices Avoid chemical prophylaxis secondary to hematemesis Discussed Condition With: Patient, nursing staff, Dr. Foy H&P: Quality VTE Deep Vein Thrombosis/Pulmonary Embolism Present on Admission: No
[2018-06-11 12:36] LABS: Hematocrit 32.4 % (35.0-46.0)
[2018-06-11] MEDS: Pantoprazole Inj 80 MG in Sodium Chlor 0.9% Inj 100 ML IV.CONT SCH ×2 (13:13→23:13)
[2018-06-11] MEDS: Insulin NovoLOG Aspart Correctional Sugar Inj SQ SCH ×3 (13:19→20:06)
[2018-06-11] MEDS: Levothyroxine 50 MCG Tablet PO SCH (13:37)
[2018-06-11] MEDS: Sucralfate Liq 1 GM/10 ML UDC PO SCH ×3 (13:37→20:02)
[2018-06-11] MEDS: Acetaminophen 325 MG Tablet PO PRN ×2 (14:55→20:02)
[2018-06-11 15:48] LABS: Hepatitis A IgM Antibody Nonreactive (Nonreactive); Hepatitits B Surface Antigen Nonreactive (Nonreactive)
[2018-06-11] MEDS: diazePAM 5 MG Tablet PO SCH (20:02)
[2018-06-11 22:16] LABS: Hematocrit 30.4 % (35.0-46.0); Hemoglobin 10.3 gm/dL (11.6-15.3)
[2018-06-12] MEDS: Levothyroxine 50 MCG Tablet PO SCH (05:34)
[2018-06-12] MEDS: Acetaminophen 325 MG Tablet PO PRN ×2 (05:43→10:50)
[2018-06-12] MEDS: Insulin NovoLOG Aspart Correctional Sugar Inj SQ SCH ×4 (07:49→20:45)
[2018-06-12] MEDS: Pantoprazole Inj 80 MG in Sodium Chlor 0.9% Inj 100 ML IV.CONT SCH ×2 (08:45→19:17)
[2018-06-12 09:30] LABS: Baso % (Auto) 0.2 % (0.0-2.0); Eos % (Auto) 0.1 % (0.0-4.0); Hematocrit 29.5 % (35.0-46.0); Hemoglobin 10.2 gm/dL (11.6-15.3); Lymph # (Auto) 1.1 th/mm3 (1.0-4.8); Lymph % (Auto) 10.1 % (9.0-44.0); Mean Corpuscular HGB Conc 34.5 % (32.0-36.0); Mean Corpuscular Hemoglobin 32.8 pg (27.0-34.0); Mean Corpuscular Volume 95.2 fL (80.0-100.0); Mean Platelet Volume 9.9 fL (7.0-11.0); Mono # (Auto) 0.4 th/mm3 (0.0-0.9); Mono % (Auto) 3.8 % (0.0-8.0); Neut # (Auto) 9.4 th/mm3 (1.8-7.7); Neut % (Auto) 85.8 % (16.0-70.0); Platelet Count 108 th/mm3 (150-450); Red Cell Distribution Width 13.1 % (11.6-17.2)
[2018-06-12] MEDS ORDERED: Lidocaine PF 1% Inj 5 ML Syringe OTHER ONE (09:40)
[2018-06-12 10:08] LABS: Albumin 3.2 g/dL (3.4-5.0); Anion Gap 9 meq/L (5-15); Aspartate Aminotransferase 51 U/L (15-37); Blood Urea Nitrogen 11 mg/dL (7-18); Calcium 7.5 mg/dL (8.5-10.1); Carbon Dioxide 25.6 meq/L (21.0-32.0); Chloride 104 meq/L (98-107); Glomerular Filtration Rate 61 mL/min (>89); Glucose,Random 106 mg/dL (74-106); Potassium 3.3 meq/L (3.5-5.1); Sodium 139 meq/L (136-145)
[2018-06-12 10:14] LABS: Alanine Aminotransferase 66 U/L (10-53); Alkaline Phosphatase 95 U/L (45-117); Total Protein 6.4 g/dL (6.4-8.2)
[2018-06-12] MEDS: Sucralfate Liq 1 GM/10 ML UDC PO SCH ×4 (10:50→20:43)
[2018-06-12] MEDS: guaiFENesin 600 MG ER Tablet PO SCH ×2 (10:51→20:43)
[2018-06-12] MEDS: diazePAM 5 MG Tablet PO SCH ×2 (10:51→20:43)
[2018-06-12 11:48] LABS: Albumin 3.1 g/dL (3.4-5.0)
[2018-06-12 11:50] LABS: Total Protein 6.5 g/dL (6.4-8.2)
--- NOTE | 2018-06-12 12:25 | MR ---
cc: Theodore Rodriguez MD DATE: 06/12/2018 INDICATION FOR PROCEDURE: Evaluation of possible hematemesis. Photographs were taken. No biopsies. Premedications administered by Anesthesiology. Monitoring was accomplished with pulse oximeter EKG, blood pressure monitor. PROCEDURE NOTE: After informed consent was obtained and the procedure, risks, and benefits were explained, including the risks of bleeding, sepsis, perforation, and risks of anesthesia, the patient was placed in left lateral position. A video endoscope inserted esophagus under direct visualization. The esophagus was carefully inspected throughout, was found to be normal throughout with normal-appearing mucosa. The EG junction and Z-line were also noted to be normal as well. There was no evidence of a Olena-Vasquez tear or inflammation. The stomach was entered. The gastric mucosa throughout appeared to be normal and a retroflexed view of the cardia and fundus were normal. The scope was then advanced through the pyloric rim and the duodenal bulb was entered. The duodenal bulb failed to reveal the ulcers as well. The first, second, and third portions of the duodenum were unremarkable. In the retroflexed view the cardia and fundus were unremarkable as well. Once again, careful inspection failed to reveal any obvious source of GI bleeding. The scope was gradually withdrawn. The base of the vocal cords were also photographed and seen, no blood was noted in this region. The patient tolerated the procedure well. No immediate complications. She was sent to recovery room in stable condition. IMPRESSION: Essentially unremarkable panendoscopy. Incidentally, there was a small hiatal hernia noted on the exam as well, but otherwise no active gastrointestinal bleeding source was seen on this study today. PLAN: Would continue acid suppressive therapy. Follow up clinically. I would consider a pulmonary consult and/or bronchoscopy at some point as well to rule out any pulmonary source of bleeding, i.e., or hemoptysis. The patient will need to follow up with Dr. Whitehead as well as an outpatient. MD GHAZALA Quezada/mai , 10:19 AM , 10:24 AM
--- NOTE | 2018-06-12 12:45 | MB ---
cc: Theodore Rodriguez MD DATE: 06/11/2018 REASON FOR GASTROINTESTINAL CONSULT: Evaluation of possible hematemesis. HISTORY OF PRESENT ILLNESS: This is a pleasant 63-year-old female with history of diabetes, hypothyroidism, hyperlipidemia, GERD, hypertension, presented to the emergency room complaining of vomiting blood. She has been under stress as she just returned from her sister's in [place]. The patient returned here locally. During the trip home her daughter developed diarrhea, nausea and vomiting, possible gastroenteritis. The patient woke up the next day feeling somewhat ill. She has body aches, sore throat, congestion, cough, soreness in her chest after coughing. She took Mucinex. She developed a fever to 103 and then she developed emesis of blood. She noted emesis and in her bed when she woke up as well. Her tissues were full of blood as well. Hemoglobin initially was 14, it has dropped to about 13 grams after admission. Her liver enzymes were slightly elevated. SGOT and SGPT were 51 and 66 respectively. Alkaline phosphatase and bilirubin were normal. She has no prior history of upper gastrointestinal bleed. She does admit to taking NSAIDs up to 3 times a month for arthritic complaints. She did take 1 yesterday as well prior to admission for her body aches. She has had endoscopic workup by Dr. Whitehead at age 49 with upper and lower endoscopy. Upper endoscopy report was unremarkable. PAST MEDICAL HISTORY: As mentioned above, diabetes, hiatal hernia, hyperlipidemia, hypothyroidism, migraine headache, shingles. PAST SURGICAL HISTORY: Hysterectomy, appendectomy, cholecystectomy, oophorectomy. SOCIAL HISTORY: She denies smoking, alcohol, or illicit drug use. FAMILY HISTORY: Father had cirrhosis of the liver. There is no history of gastrointestinal cancer. OUTPATIENT MEDICATIONS: 1. Omeprazole. 2. Hydrochlorothiazide. 3. Levothyroxine. 4. Promethazine. 5. Naproxen occasionally. 6. Rosuvastatin. 7. Valacyclovir. REVIEW OF SYSTEMS: A 12-point review of systems as stated in the HPI. She denies any melena or syncopal episodes. ALLERGIES: THIMEROSAL. PHYSICAL EXAMINATION: GENERAL: Pleasant, well-developed female, alert and oriented x3, no acute distress. VITAL SIGNS: Temperature is 101-102. HEENT: Normocephalic, atraumatic. Sclerae are anicteric. Oral mucosa is dry. NECK: Supple. No JVD, masses, or nodes. CARDIAC: S1, S2, regular rate and rhythm. LUNGS: Occasional rhonchi, otherwise clear. ABDOMEN: Obese, soft, nontender. No masses or organomegaly. Bowel sounds are present throughout all quadrants. EXTREMITIES: Without clubbing, cyanosis, or edema. NEUROLOGIC: Appears to be intact. No focal deficits. SKIN: Warm and dry. ASSESSMENT AND PLAN: 1. Possible hematemesis. 2. Possible viral syndrome, gastroenteritis. 3. Cough. 4. Slightly elevated liver enzymes. 5. History of gastroesophageal reflux disease. 6. History of NSAID use. PLAN: We will proceed with EGD for further evaluation. Procedure, risks, and benefits were discussed including bleeding, sepsis, perforation, risks of anesthesia. Etiology to her possible hematemesis include esophagitis, gastritis ulcer disease, or Olena-Vasquez tear due to repeated vomiting. Would continue PPI and Carafate. Would suggest rechecking liver enzymes at some point. She will require eventually, an ultrasound of the abdomen as well and evaluation of the liver. This can be performed as an outpatient as well after discharge when she follows up with Dr. Whitehead. I have discussed the case with her in detail. Continue therapy for febrile illness as per her hospitalist physician. We will add Carafate. We will follow with you. MD GHAZALA Quezada/mai , 10:27 AM , 10:36 AM
--- NOTE | 2018-06-12 18:18 | P.PNIM ---
Subjective Interval history: Patient complains of a cough, no other complaints from her today. Physical Exam Vital signs: Vital Signs 06/11/18 20:00 06/11/18 20:32 06/12/18 00:00 Temperature 100.6 F H 99.3 F Pulse Rate 89 82 Respiratory Rate 18 18 18 Blood Pressure 119/57 L 101/54 L Pulse Oximetry 95 95 06/12/18 01:37 06/12/18 06:03 06/12/18 08:00 Temperature 99.1 F 98.4 F Pulse Rate 90 79 Respiratory Rate 20 18 17 Blood Pressure 113/55 L 98/54 L Pulse Oximetry 93 L 95 06/12/18 10:15 06/12/18 10:30 06/12/18 11:20 Temperature 98.6 F Pulse Rate 79 79 Respiratory Rate 14 18 Blood Pressure 115/56 L 111/56 L Pulse Oximetry 96 100 06/12/18 12:00 06/12/18 13:50 06/12/18 16:00 Temperature 98.1 F 98.7 F Pulse Rate 83 80 86 Respiratory Rate 18 18 16 Blood Pressure 109/56 L 105/53 L Pulse Oximetry 96 92 L Intake & Output 06/11/18 06/12/18 06/12/18 18:59 06:59 18:59 Intake Total 1280 / 1280 100 / 100 400 / 400 Balance 1280 / 1280 100 / 100 400 / 400 Weight 80.7 kg Intake: IV 1000 / 1000 100 / 100 100 / 100 Protonix Inj 80 MG In NS Inj 100 / 100 100 / 100 100 ML @ 10 mls/hr IV.CONT Q10H WENDY Rx#:[id number] NS Inj 1,000 ML @ Wide Open IV. 1000 / 1000 SIG BOLUS ONE Rx#:[id number] Oral 280 / 280 Anesthesia Amount 300 / 300 Other: # Voids 2 Narrative: Awake and alert S1S2 Patient has a cough, mild rhonchi b/l abd soft, nontender, normal bowel sounds. No edema of exts no neuro deficits. Results Labs CBC & Chem 7: 06/12/18 06:13 06/12/18 06:13 Labs: Microbiology 06/11/18 04:13 Blood - Peripheral Aerobic Blood Culture - Preliminary No growth in 1 day 06/11/18 04:13 Blood - Peripheral Anaerobic Blood Culture - Preliminary Staphylococcus epidermidis 06/11/18 06:30 Clean Catch Urine Urine Culture - Preliminary <10,000 cfu/mL gram positive quirino - no further workup 06/11/18 04:18 Blood - Peripheral Aerobic Blood Culture - Preliminary No growth in 1 day 06/11/18 04:18 Blood - Peripheral Anaerobic Blood Culture - Preliminary No growth in 1 day Assessment and Plan Plan This patient is a 63-year-old female with a diagnosis of hypertension, dyslipidemia, hypothyroidism, diabetes mellitus. Patient presented to the hospital for evaluation after vomiting of blood. Patient also reports having a fever prior to admission which she states was 103. Hemoglobin in the emergency department and portal range was found to be around 14. There was a concern for upper GI bleed and the patient was sent over to the [facility] for evaluation and care. 1. Acute symptomatic anemia concern for upper GI bleed. Patient presented with the symptoms mentioned above Hgb has shown a downtrend. Switch protonix drip to protonix iv bid. She underwent EGD today which showed a small hiatal hernia, no signs of active bleeding. Started on a PO diet. Will watch hgb levels, if no significant drop tomorrow she can likely be discharged tomorrow. If there is a drop in hgb then patient will need evaluation by Pulm for possible source of hemorrhage as per GIs recs. If stable then outpatient follow up should be ok. Abd u/s ordered by GI for tomorrow am. 2. HTN/Hypothyroidism Blood pressure under control. Continue synthroid. 3. DM Continue sliding scale Continue accu checks. Blood sugars running between 120-190. 4. SIRS Patient blood cx positive 1/2 for staph epi, likely a contaminant however patient is spiking fevers. CXR is clear, pt complaining of a cough, nonproductive. Will repeat blood cxs U/a positive, follow up cx. Patient given rocephin yesterday, will continue it today. Will follow up all cxs. SCDs for dvt prophylaxis. Progress Note: Quality VTE Deep Vein Thrombosis/Pulmonary Embolism Present on Admission: No
[2018-06-12] MEDS: Pantoprazole Inj 40 MG Vial IV.PUSH SCH (20:44)
[2018-06-13] MEDS: Levothyroxine 50 MCG Tablet PO SCH (05:12)
[2018-06-13 08:57] LABS: Hematocrit 28.5 % (35.0-46.0); Hemoglobin 9.9 gm/dL (11.6-15.3)
--- NOTE | 2018-06-13 09:05 | US ---
EXAM DATE: 06/13/2018 8:42 AM EST AGE/SEX: 63 years / Female INDICATIONS: Abdominal pain. CLINICAL DATA: This is the patient's initial encounter. Patient reports that signs and symptoms have been present for 1 day and indicates a pain score of 0/10. MEDICAL/SURGICAL HISTORY: . Diabetic. Hiatal hernia. Hyperlipidemia. HTN. Hypothyroid. Hys terectomy. Appendectomy. Cholecystectomy. Oopherectomy. COMPARISON: [facility], CT CHEST W CONTRAST, 12/09/2017. . MEASUREMENTS: Liver:__ 20.4 cm. Common Bile Duct:___ 6mm. Right Kidney:___9.8 x 5.1 x 4.4 cm. Left Kidney:___9.8 x 5.9 x 6.5 cm. Spleen:___10.9 cm. FINDINGS: Liver: Increased echogenicity without focal lesion or ductal dilatation. Portal Vein: Hepatopedal flow seen in portal vein. Common Duct: No intraluminal mass or stone visualized. Gallbladder: Surgically absent. Pancreas: The visualized portions are within normal limits Right Kidney: Normal echogenicity and cortical thickness. No mass or hydronephrosis. Left Kidney: Normal echogenicity and cortical thickness. No mass or hydronephrosis. Ascites: None Pleural Effusion: None Spleen: No focal lesion. Aorta: Non aneurysmal. IVC: Within normal limits Other: None. CONCLUSION: Previous cholecystectomy. Normal bile duct. Liver is enlarged and fatty. Electronically signed by: Corey Yeboah MD Board Certified Radiologist 06/13/2018 9:04 AM EST
[2018-06-13 09:24] LABS: Carbon Dioxide 26.5 meq/L (21.0-32.0); Magnesium 1.9 mg/dL (1.5-2.5); Potassium 3.6 meq/L (3.5-5.1)
[2018-06-13] MEDS: Insulin NovoLOG Aspart Correctional Sugar Inj SQ SCH ×3 (09:39→18:01)
[2018-06-13] MEDS: diazePAM 5 MG Tablet PO SCH (09:40)
[2018-06-13] MEDS: Sucralfate Liq 1 GM/10 ML UDC PO SCH ×3 (09:40→17:58)
[2018-06-13] MEDS: Pantoprazole Inj 40 MG Vial IV.PUSH SCH (09:40)
[2018-06-13] MEDS: guaiFENesin 600 MG ER Tablet PO SCH (09:40)
[2018-06-13 11:58] VITALS: O2SAT 95
--- NOTE | 2018-06-13 13:32 | P.PNGI ---
Subjective Interval history: patient is seen feels okay has a cough and some shortness of breath is on oxygen. Denies any new hematemesis or melanotic stools. Status post upper endoscopy which did not reveal any source of upper GI bleeding. Physical Exam Vital signs: Vital Signs 06/12/18 13:50 06/12/18 16:00 06/12/18 20:00 Temperature 98.7 F 98.0 F Pulse Rate 80 86 77 Respiratory Rate 18 16 18 Blood Pressure 105/53 L 116/56 L Pulse Oximetry 92 L 96 06/12/18 23:00 06/13/18 00:00 06/13/18 05:44 Temperature 97.6 F Pulse Rate 70 Respiratory Rate 18 18 18 Blood Pressure 133/74 Pulse Oximetry 98 06/13/18 08:00 06/13/18 11:54 Temperature 97.9 F 98.4 F Pulse Rate 71 72 Respiratory Rate 18 17 Blood Pressure 132/73 138/63 Pulse Oximetry 98 95 Intake & Output 06/12/18 06/13/18 06/13/18 18:59 06:59 18:59 Intake Total 1000 / 1000 340 / 340 Balance 1000 / 1000 340 / 340 Weight 81.9 kg Intake: IV 200 / 200 100 / 100 Protonix Inj 80 MG In NS Inj 200 / 200 100 ML @ 10 mls/hr IV.CONT Q10H WENDY Rx#:[id number] Rocephin Inj 1,000 MG In NS Inj 100 / 100 100 ML @ 200 mls/hr IV.SIG Q24H WENDY Rx#:[id number] Oral 500 / 500 240 / 240 Anesthesia Amount 300 / 300 Other: Post Void Residual 3 # Voids 5 # Bowel Movements 0 - Constitutional mild distress - Routine HEENT Exam Head: Present: normocephalic Eye: Present: EOMI, scleral injection - Routine Neck Exam Present: supple, full ROM. Absent: thyromegaly, tenderness - Routine Respiratory Exam Present: CTA bilaterally, prolonged expiratory phase, distant breath sounds. Absent: accessory muscle use - Routine Cardiovascular Exam Present: RRR, S1 - Routine Abdominal Exam Present: soft, normoactive bowel sounds. Absent: tenderness, distended, rebound , guarding, organomegaly - Routine Extremities Exam Present: cyanosis. Absent: clubbing - Routine Skin Exam Present: intact. Absent: cyanosis - Routine Neurological Exam Present: alert, oriented X3 - Routine Psychiatric Exam Present: normal affect, normal thought process, good judgment Results - Labs CBC & Chem 7: 06/13/18 07:27 06/13/18 07:27 Laboratory Results - last 24 hr 06/12/18 06/12/18 06/13/18 16:28 20:45 07:27 Hgb Hct Sodium 141 Potassium 3.6 Chloride 108 H Carbon Dioxide 26.5 Anion Gap 7 BUN 11 Creatinine 0.83 Estimated GFR 69 L POC Glucose 194 H 171 H Random Glucose 129 H Calcium 8.0 L Magnesium 1.9 06/13/18 06/13/18 06/13/18 07:27 08:28 12:04 Hgb 9.9 L Hct 28.5 L Sodium Potassium Chloride Carbon Dioxide Anion Gap BUN Creatinine Estimated GFR POC Glucose 123 H 138 H Random Glucose Calcium Magnesium Microbiology 06/12/18 20:20 Blood - Peripheral Aerobic Blood Culture - Preliminary No growth in 1 day 06/12/18 20:20 Blood - Peripheral Anaerobic Blood Culture - Preliminary No growth in 1 day 06/12/18 20:05 Blood - Peripheral Aerobic Blood Culture - Preliminary No growth in 1 day 06/12/18 20:05 Blood - Peripheral Anaerobic Blood Culture - Preliminary No growth in 1 day 06/11/18 04:18 Blood - Peripheral Aerobic Blood Culture - Preliminary No growth in 2 days 06/11/18 04:18 Blood - Peripheral Anaerobic Blood Culture - Preliminary No growth in 2 days 06/11/18 04:13 Blood - Peripheral Aerobic Blood Culture - Preliminary gram positive cocci 06/11/18 04:13 Blood - Peripheral Anaerobic Blood Culture - Preliminary Staphylococcus epidermidis 06/11/18 06:30 Clean Catch Urine Urine Culture - Final <10,000 cfu/mL gram positive quirino - no further workup - Imaging Impressions Abdomen Ultrasound 06/13/18 10:28 CONCLUSION: Previous cholecystectomy. Normal bile duct. Liver is enlarged and fatty. Assessment and Plan - Plan IMP 1.Acute viral illness likely upper respiratory in nature 2. episode of hematemesis unclear etiology may be secondary to Olena-Vasquez tear patient did have multiple bouts of vomiting and then 1 bout of small amount of hematemesis. Status post EGD with no clear etiology found PLAN: 1. continue treatment for the occurred viral illness with conservative approach 2. recommend Protonix 40 mg once a day for 1 month and then can discontinue. 3. can discontinue Carafate. 4. no urgent plans for repeat endoscopy at this time can follow up outpatient. Once acute respiratory illness has resolved.
--- NOTE | 2018-06-13 14:33 | P.PNIM ---
Subjective Interval history: Patient complains of a small oral ulceration of the upper lip. She still has a cough. No other complaints. Physical Exam Vital signs: Vital Signs 06/12/18 16:00 06/12/18 20:00 06/12/18 23:00 Temperature 98.7 F 98.0 F Pulse Rate 86 77 Respiratory Rate 16 18 18 Blood Pressure 105/53 L 116/56 L Pulse Oximetry 92 L 96 06/13/18 00:00 06/13/18 05:44 06/13/18 08:00 Temperature 97.6 F 97.9 F Pulse Rate 70 71 Respiratory Rate 18 18 18 Blood Pressure 133/74 132/73 Pulse Oximetry 98 98 06/13/18 11:54 Temperature 98.4 F Pulse Rate 72 Respiratory Rate 17 Blood Pressure 138/63 Pulse Oximetry 95 Intake & Output 06/12/18 06/13/18 06/13/18 18:59 06:59 18:59 Intake Total 1000 / 1000 340 / 340 Balance 1000 / 1000 340 / 340 Weight 81.9 kg Intake: IV 200 / 200 100 / 100 Protonix Inj 80 MG In NS Inj 200 / 200 100 ML @ 10 mls/hr IV.CONT Q10H WENDY Rx#:[id number] Rocephin Inj 1,000 MG In NS Inj 100 / 100 100 ML @ 200 mls/hr IV.SIG Q24H WENDY Rx#:[id number] Oral 500 / 500 240 / 240 Anesthesia Amount 300 / 300 Other: Post Void Residual 3 # Voids 5 # Bowel Movements 0 Narrative: Awake and alert small oral ulceration. S1S2 Patient has a cough, mild rhonchi b/l abd soft, nontender, normal bowel sounds. No edema of exts no neuro deficits. Results Labs CBC & Chem 7: 06/13/18 07:27 06/13/18 07:27 Labs: Microbiology 06/12/18 20:20 Blood - Peripheral Aerobic Blood Culture - Preliminary No growth in 1 day 06/12/18 20:20 Blood - Peripheral Anaerobic Blood Culture - Preliminary No growth in 1 day 06/12/18 20:05 Blood - Peripheral Aerobic Blood Culture - Preliminary No growth in 1 day 06/12/18 20:05 Blood - Peripheral Anaerobic Blood Culture - Preliminary No growth in 1 day 06/11/18 04:18 Blood - Peripheral Aerobic Blood Culture - Preliminary No growth in 2 days 06/11/18 04:18 Blood - Peripheral Anaerobic Blood Culture - Preliminary No growth in 2 days 06/11/18 04:13 Blood - Peripheral Aerobic Blood Culture - Preliminary gram positive cocci 06/11/18 04:13 Blood - Peripheral Anaerobic Blood Culture - Preliminary Staphylococcus epidermidis 06/11/18 06:30 Clean Catch Urine Urine Culture - Final <10,000 cfu/mL gram positive quirino - no further workup Imaging Imaging: Impressions Abdomen Ultrasound 06/13/18 10:28 CONCLUSION: Previous cholecystectomy. Normal bile duct. Liver is enlarged and fatty. Assessment and Plan Plan This patient is a 63-year-old female with a diagnosis of hypertension, dyslipidemia, hypothyroidism, diabetes mellitus. Patient presented to the hospital for evaluation after vomiting of blood. Patient also reports having a fever prior to admission which she states was 103. Hemoglobin in the emergency department and portal range was found to be around 14. There was a concern for upper GI bleed and the patient was sent [facility] for [facility] and care. 06/13/18 Patient afebrile overnight. Still on 2 L of supplemental oxygen. Will titrate off of oxygen. Patient says she has difficulty walking. Will have pt eval the patient today. Once patient is off of oxygen and evaluated by PT she will be discharged. Valacyclovir restarted, pt has oral small ulceration. GI has cleared the patient for discharge, no source of upper gi bleed found. Possibly chase rebel tear. Continue protonix on discharge daily for a month. F/u with GI outpt. Possible discharge later today or early tomorrow am. 1. Acute symptomatic anemia concern for upper GI bleed. Patient presented with the symptoms mentioned above Hgb has shown a downtrend. Switch protonix drip to protonix iv bid. She underwent EGD today which showed a small hiatal hernia, no signs of active bleeding. Started on a PO diet. Will watch hgb levels, if no significant drop tomorrow she can likely be discharged tomorrow. If there is a drop in hgb then patient will need evaluation by Pulm for possible source of hemorrhage as per GIs recs. If stable then outpatient follow up should be ok. Abd u/s ordered by GI for tomorrow am. 2. HTN/Hypothyroidism Blood pressure under control. Continue synthroid. 3. DM Continue sliding scale Continue accu checks. Blood sugars running between 120-190. 4. SIRS Patient blood cx positive 1/2 for staph epi, likely a contaminant however patient is spiking fevers. CXR is clear, pt complaining of a cough, nonproductive. Will repeat blood cxs U/a positive, follow up cx. Patient given rocephin yesterday, will continue it today. Will follow up all cxs. SCDs for dvt prophylaxis. Progress Note: Quality VTE Deep Vein Thrombosis/Pulmonary Embolism Present on Admission: No
[2018-06-13 16:25] VITALS: BP 144/78; PULSE 79; RESP 18; TEMP 99.1
[2018-06-13] MEDS ORDERED: valACYclovir 500 MG Tab PO SCH (22:00)
[2018-06-14] MEDS ORDERED: Estradiol 1 MG Tablet PO SCH (09:00)
--- NOTE | 2018-06-14 09:19 | MB ---
cc: Theodore Rodriguez MD DATE: 06/11/2018 REASON FOR GASTROINTESTINAL CONSULT: Evaluation of hematemesis. HISTORY OF PRESENT ILLNESS: This is a pleasant 63-year-old female known to Dr. Whitehead. She had EGD and colonoscopy about 4 years ago. Upper endoscopy was benign. According to the patient, she does have a history of chronic GERD, on proton pump inhibitor therapy. As long as she takes her PPI, her reflux seems to be stable. Recently, she has had a lot of stress, that she was returning from her sister's in [place]. Her daughter developed nausea and vomiting, gastroenteritis-type symptoms, and then the patient herself began having nausea and vomiting repeatedly. She also was noted to be afebrile. when she arrived from [place]. The temperature was up to 102 to 103. She did take an Advil or Aleve with Mucinex, went to bed and then she began having repeated bouts of emesis once again. Initially, this was bilious and became bloody mixed with bile. She stated she had a significant amount of bleeding. She had no syncopal episodes. She did any burning in the epigastric substernal region. When she presented to the emergency room, hemoglobin was 14.8, repeat was 13.6. She is feeling better at this time. I was asked to evaluate her further. PAST MEDICAL HISTORY: Diabetes, hiatal hernia, hyperlipidemia, hypothyroidism, GERD, migraine headache, shingles. PAST SURGICAL HISTORY: Appendectomy, cholecystectomy, oophorectomy. SOCIAL HISTORY: She denies alcohol or illicit drug use. She denies smoking. FAMILY HISTORY: Pertinent for breast cancer with her sister. There is no history of colorectal cancer. ALLERGIES: THIMEROSAL. REVIEW OF SYSTEMS: A 12-point review of systems was as stated in the HPI. MEDICATIONS AT HOME: 1. Diazepam. 2. Promethazine. 3. She was on Naproxen p.r.n. as well. 4. Rosuvastatin. 5. Valacyclovir. PHYSICAL EXAMINATION: GENERAL: Well-developed female who is alert and oriented x3, in no acute distress. VITAL SIGNS: Stable. Temperature noted to be 102, normotensive. HEENT: Normocephalic, atraumatic. Sclerae are anicteric. Oral mucosa is dry. NECK: Supple. No JVD, masses or nodes. CARDIAC: S1, S2, regular rhythm. CHEST: Clear with some scattered rhonchi. ABDOMEN: Obese, soft and nontender. Bowel sounds are present. No organomegaly. No tenderness or rebound noted. Bowel sounds heard throughout the lower quadrants. EXTREMITIES: Without clubbing, cyanosis or edema. NEUROLOGIC: Nonfocal exam. No deficits noted. SKIN: Warm and dry. IMPRESSION: 1. Possible recent gastroenteritis symptoms with repeated bouts of nausea and vomiting. 2. History of chronic GERD. 3. History of NSAID use. It is noted the patient has been taking NSAIDs up to 2-3 times a month for arthritic problems. 4. Hematemesis, bright red blood. Currently not anemic. 5. Febrile illness. 6. As noted, the patient does have elevated LFTs, SGOT and SGPT 106/65. Lipase was normal. Bilirubin was normal. PLAN: At this time, continue IV hydration. IV antibiotics have been started. She is receiving Zithromax and ceftriaxone. Continue Tylenol for febrile illness. Continue proton pump inhibitor. I have added Carafate as well. Continue ondansetron for nausea and vomiting. We will plan on EGD in the morning. The patient needs to be transferred to [facility]. Procedure, risks and benefits were discussed including bleeding, sepsis, perforation. Would monitor the H and H closely. Will be glad to follow the patient with you. Thank you kindly for this consult. Etiology of the patient's upper gastrointestinal bleed could include esophagitis, gastritis, ulcer disease and a Olena-Vasquez tear as well. I have discussed this with the attending staff as well. MD GHAZALA Quezada/woo , 12:51 PM , 01:01 PM
--- NOTE | 2018-06-14 18:57 | P.DS ---
DS: Providers Date of admission: 06/12/18 18:33 Primary care physician: Bc Johnston Consults: 06/11/18 11:10 Consult to Gastroenterology Routine Consulting Provider: Theodore Rodriguez Store Host:: Vijay Whitehead Patient known to:: Vijay Whitehead Reason for Consultation: Hematemesis Notified:: Service Spoke with:: NATTY Date Notified:: 06/11/18 Time Notified:: 11:38 Ordering Provider: KINGSLEY 06/11/18 14:06 HUB Only Consult Order Routine Consulting Provider: [facility],Insurance Brief History from admission: 63-year-old female with known history of hypertension, hyperlipidemia, diabetes, hypothyroidism who presented to hospital for evaluation of vomiting of blood. Patient states that she has been undergoing a lot of stress recently and just went to her sister's . Her and her daughter were driving back from [place] where the the was yesterday and her daughter developed sudden onset of nausea and vomiting. She persisted to have that during the whole drive down. The patient herself woke up yesterday morning not feeling 100%. She started developing body aches, sore throat, congestion the patient did take an Mucinex with minimal relief. Last evening the patient started developing fever which he states was 103. She got out of bed in order to take an Aleve. Then shortly after that she started having nausea and vomiting where she described as her stomach flipped and she just started vomiting. She noticed that there is copious amounts of blood in her vomit that she vomited in the bed as well as the napkins were full of blood. Because of that she came to the emergency department for evaluation. Patient did have workup performed in emergency department and found to have hemoglobin of 14.8. Gastric occult was positive. Normal renal functions. Mildly elevated liver enzymes. Bilirubin was normal. Due to the patient's continued fever, hematemesis it was recommended that patient be admitted to hospital for further evaluation and management. Patient indicates that she has been seen by Dr. Whitehead and has had upper and lower endoscopy. DS: Summary This patient is a 63-year-old female with a diagnosis of hypertension, dyslipidemia, hypothyroidism, diabetes mellitus. Patient presented to the hospital for evaluation after vomiting of blood. Patient also reports having a fever prior to admission which she states was 103. Hemoglobin in the emergency department and portal range was found to be around 14. There was a concern for upper GI bleed and the patient was sent over to the main hospital for evaluation and care. 06/13/18 Patient afebrile overnight. Titrated off of supplemental oxygen. On room air, no sob. Patient says she has difficulty walking. PT evaluated the patient and recommended a front wheel walker. Patient is refusing to use the front wheel walker and does not want any home health. She is requesting to leave the hospital and will be discharged. Patient was advised to use the walker however is refusing. She is alert and oriented x 3. Case discussed with nurse Clark. Valacyclovir restarted, pt has oral small ulceration. GI has cleared the patient for discharge, no source of upper gi bleed found. Possibly chase rebel tear. Continue protonix on discharge daily for a month. F/u with GI outpt. 1. Acute symptomatic anemia concern for upper GI bleed. Patient presented with the symptoms mentioned above Hgb has shown a downtrend. Switch protonix drip to protonix iv bid. She underwent EGD today which showed a small hiatal hernia, no signs of active bleeding. Started on a PO diet. Will watch hgb levels, if no significant drop tomorrow she can likely be discharged tomorrow. If there is a drop in hgb then patient will need evaluation by Pulm for possible source of hemorrhage as per GIs recs. If stable then outpatient follow up should be ok. Abd u/s ordered by GI for tomorrow am. 2. HTN/Hypothyroidism Blood pressure under control. Continue synthroid. 3. DM Pt on sliding scale while in the hospital. Follow up with pcp in one week. Out pt follow up after discharge, regular routine screening for DM. Blood sugars ranged from 100-150 while in the hospital. Time Spent with Patient Total time spent providing and/or coordinating discharge services: Quality: VTE Deep Vein Thrombosis/Pulmonary Embolism Present on Admission: No Exam Narrative Exam Narrative: small oral ulceration on left upper lip S1S2 Patient has a cough, mild rhonchi b/l abd soft, nontender, normal bowel sounds. No edema of exts no neuro deficits Results Labs on day of discharge: Preliminary micro results at discharge 06/12/18 20:20 Aerobic Blood Culture - Preliminary Blood - Peripheral No growth in 2 days Anaerobic Blood Culture - Preliminary No growth in 2 days 06/12/18 20:05 Aerobic Blood Culture - Preliminary Blood - Peripheral No growth in 2 days Anaerobic Blood Culture - Preliminary No growth in 2 days 06/11/18 04:18 Aerobic Blood Culture - Preliminary Blood - Peripheral No growth in 3 days Anaerobic Blood Culture - Preliminary No growth in 3 days Impressions ITS Impressions Chest X-Ray 06/11/18 04:15 CONCLUSION: No acute disease Abdomen Ultrasound 06/13/18 10:28 CONCLUSION: Previous cholecystectomy. Normal bile duct. Liver is enlarged and fatty. Discharge Plan Discharge Disposition Patient Disposition: Discharge Home Discharge Condition Condition: Stable Discharge Order Discharge Orders: Discharge Order (Routine); Ordered 06/13/18 Ordered By: Nelli Duran Physicians Team ED Provider: Alpa Selby Primary Care Provider: Bc Johnston Attending Provider: Nelli Duran Other Providers: Theodore Rodriguez ; [facility],Insurance Rxs /Orders / Referrals /Forms Prescriptions: New levofloxacin [Levaquin] 750 mg tablet 750 mg PO DAILY 5 Days Qty: 5 RF: 0 Continue valacyclovir 1 gram Tablet 1,000 mg PO TID RF: 0 potassium chloride 10 mEq Tablet Extended Release 10 meq PO BID RF: 0 magnesium oxide [MagOx] 400 mg (241.3 mg magnesium) Tablet 400 mg PO DAILY RF: 0 rosuvastatin 40 mg Tablet 40 mg PO DAILY RF: 0 guaifenesin [Mucinex] 1,200 mg Tablet Extended Release 12hr 1,200 mg PO Q12H RF: 0 fosinopril 20 mg Tablet 20 mg PO BID RF: 0 esomeprazole magnesium 40 mg Capsule,Delayed Release(Dr/Ec) 40 mg PO DAILY RF: 0 promethazine 25 mg Tablet 25 mg PO Q6H PRN (Reason: Acne) RF: 0 [id number]-kfjmqju-ggbikiow 50-325-40 mg Capsule 1 cap PO Q6H RF: 0 estradiol 2 mg Tablet 2 mg PO EVERY OTHER DAY RF: 0 hydrochlorothiazide 25 mg Tablet 25 mg PO DAILY RF: 0 diazepam 5 mg Tablet 5 mg PO BID RF: 0 nebivolol [Bystolic] 10 mg Tablet 10 mg PO DAILY RF: 0 levothyroxine 50 mcg Capsule 50 mcg PO DAILY RF: 0 Discontinued naproxen sodium 220 mg Tablet 220 mg PO BID PRN (Reason: Pain) RF: 0 Referrals: Theodore Rodriguez MD [Physician] - See Instructions Bc Johnston M.D. [Primary Care Provider] - See Instructions Discharge Instructions Patient Printed Instructions: Levofloxacin (By mouth), Gastritis (DC), Sepsis ( GEN) Status ED Status: Left Department Discharge Information Discharge Date/Time: 06/13/18 18:45
== END 2018-06-13 18:45 | disposition home or self-care (01) | DRG 378 ==
LOC: PHEDA 04:02 → PHED 04:02 → PHEDA 07:40 → PH3 07:47 → N07 14:32
PROVIDERS: ADMIT Hospitalist; ATTEND Hospitalist
PROC: PANENDO (2018-06-12 09:40)
CPT/HCPCS: 71010; 71045; 76700; 80048; 80053; 80074; 80076; 81001; 82948; 82962; 83605; 83690; 83735; 84484; 85014; 85018; 85025; 85610; 86403; 86850; 86900; 86901; 87040; 87086; 87149; 87186; 87205; 87275; 87276; 87804; 90761; 90765; 90766; 90775; 90776; 93005; 94640; 94664; 94665; 96361; 96365; 96366; 96375; 96376; 97161; 99285; C9113; G0378; J0456; J0696; J1815; J2405; J2704; J7030; J7050